=== PATIENT | female | born 1970 | race Caucasian/White ===

== ENCOUNTER 2016-10-18 16:03 | Emergency (ER) | payer OTHER ==
[~2016-10-18] VITALS: Ht 172.7 cm; Wt 102.0 kg
[~2016-10-18 16:03] MED LIST: ANTIVERT25 MG PO; AUGMENTIN875 MG PO; BENICAR HCT 201 EACH PO; BENICAR HCT1 TABLET PO; CELEXA20 MG PO; CLARITIN,ALAVAR10 MG PO; CLONAZEPAM1 MG PO; DURICEF1 GM PO; ELAVIL10 MG PO; FLEXERIL10 MG PO; HYDROCODON-ACE1 EAC7 PO; Hydrodiuril,Oretic,E PO; KEFLEX500 MG PO; LEXAPRO20 MG PO; LISINOPRIL2.5 MG PO; LORTAB 10/501 TABLET PO; Levothroid,Synthroid PO; MIRTAZAPINE30 MG PO; NAPROSYN500 MG PO; NAPROXEN500 MG PO; PERCOCET 5/31 TABLET PO; PROMETHAZINE HC50 M1 PO; PROPRANOLOL HCL10 MG PO; PYRIDIUM200 MG PO; Protonix PO; SEROQUEL XR400 MG PO; SEROQUEL100 MG PO; SEROQUEL12.5 MG PO; SYNTHROID112 MCG PO; SYNTHROID75 MCG PO; TOPAMAX15 MG PO; TORADOL10 MG PO; TRAMADOL HCL50 MG PO; TRAVEL SICKNESS25 MG PO; TRAZODONE HCL50 MG PO; TYLENOL WITH C1 EACH PO; ULTRAM50 MG PO; VALIUM5 MG PO; ZOFRAN ODT4 MG PO; ZOFRAN4 MG PO; Zestril,Prinivil PO
[2016-10-18 21:42] VITALS: BP 152/96
== END 2016-10-18 21:42 | disposition home or self-care (01) ==
LOC: EXP 16:03 → EME 16:03 → EXP 21:42
DX: S80.01XA Contusion of right knee, initial encounter (principal); X58.XXXA Exposure to other specified factors, initial encounter; I10 Essential (primary) hypertension; E03.9 Hypothyroidism, unspecified
CPT/HCPCS: 93971; 99281; 99283

== ENCOUNTER 2017-05-19 14:39 | Emergency (ER) | payer OTHER ==
[~2017-05-19] VITALS: Ht 172.7 cm; Wt 105.4 kg
[2017-05-19 17:53] VITALS: BP 119/74
== END 2017-05-19 17:54 | disposition home or self-care (01) ==
LOC: EME 14:39
DX: F41.9 Anxiety disorder, unspecified (principal); R55 Syncope and collapse; R07.89 Other chest pain; R11.0 Nausea; R61 Generalized hyperhidrosis; Z63.4 Disappearance and death of family member; I10 Essential (primary) hypertension; E03.9 Hypothyroidism, unspecified; Z87.442 Personal history of urinary calculi; Z90.710 Acquired absence of both cervix and uterus
CPT/HCPCS: 93005; 99281; 99284; J7030